=== PATIENT | female | born 1980 | race Caucasian/White ===

== ENCOUNTER 2024-12-09 21:26 | Emergency (ER) | payer OTHER ==
[~2024-12-09] VITALS: Ht 157.5 cm; Wt 83.7 kg
[2024-12-09] MEDS ORDERED: TOPIRAMATE25 MG (21:52)
[2024-12-09] MEDS ORDERED: BACLOFEN10 MG PO (21:53)
[2024-12-09] MEDS ORDERED: PREGABALIN50 MG PO (21:53)
[2024-12-09] MEDS ORDERED: ALLEGRA ALLERG180 MG PO (21:54)
[2024-12-09] MEDS ORDERED: DRIZALMA SPRINK60 MG (21:54)
[2024-12-09] MEDS ORDERED: PAIN RELIEF500 M1 (21:55)
[2024-12-09] MEDS ORDERED: TURMERIC500 M2 (21:55)
[2024-12-09] MEDS ORDERED: CLONAZEPAM0.25 MG (21:56)
[2024-12-09 22:53] LABS: BASOPHILS 0.3 % (0.1-1.2); EOSINOPHILS 1.4 % (0.7-5.8); LYMPHOCYTES 23.0 % (19.3-51.7); MCH 28.4 PG (25.6-32.2); MCHC 33.4 g/dL (32.2-35.5); MCV 84.9 fL (79.4-94.8); MONOCYTES 6.2 % (4.7-12.5); NEUTROPHILS 68.9 % (34.0-71.1); RBC 5.50 M/uL (3.93-5.22)
[2024-12-09] MEDS ORDERED: LORazepam 2 MG/ML VIAL IV ONE (23:00)
[2024-12-09] MEDS ORDERED: LACTATED RINGER'S 1,000 ML IV ONE (23:00)
[2024-12-09 23:07] LABS: ALT (SGPT) 8.0 U/L (14-59); AST (SGOT) 13.0 U/L (15-37); GLOMERULAR FILTRATION RATE,EST 64.0 mL/min (>60); PROTEIN, TOTAL 7.6 g/dL (6.4-8.2); UREA NITROGEN 11.0 mg/dL (7-18)
[2024-12-10] MEDS ORDERED: LACTATED RINGER'S 1,000 ML IV ONE (00:15)
[2024-12-10 00:55] VITALS: BP 127/84
--- NOTE | 2024-12-10 10:45 | EKG ---
[facility] [address] [facility] [place], [place] [address] Signed Sinus tachycardia with short [place] Otherwise normal ECG No previous ECGs available Confirmed by David Mcclain DO ([id number]) on 12/10/2024 10:45:24 AM Electronically Signed By: DAVID MCCLAIN DO 12/10/24 1045 PATIENT NAME: TITOWOOD Electrocardiogram DATE OF : 76 PHYSICIAN: DAVID MCCLAIN DO REPORT #: [id number] REPORT IS CONFIDENTIAL AND NOT TO BE RELEASED WITHOUT AUTHORIZATION
== END 2024-12-10 00:59 | disposition home or self-care (01) ==
LOC: ED 21:26
PROVIDERS: Internal Medicine
DX: G89.29 Other chronic pain (principal); G47.00 Insomnia, unspecified; Z88.0 Allergy status to penicillin; Z88.5 Allergy status to narcotic agent; Z79.899 Other long term (current) drug therapy
CPT/HCPCS: 80053; 85025; 93005; 93010; J2060; J7121

== ENCOUNTER 2024-12-12 11:06 | Emergency (ER) | payer OTHER ==
[~2024-12-12] VITALS: Ht 157.5 cm; Wt 81.0 kg
[~2024-12-12 11:06] MED LIST: ALLEGRA ALLERG180 MG PO; BACLOFEN10 MG PO; CLONAZEPAM0.25 MG; DRIZALMA SPRINK60 MG; PAIN RELIEF500 M1; PREGABALIN50 MG PO; TOPIRAMATE25 MG; TURMERIC500 M2
--- OUTSIDE RECORDS SUMMARY | 2024-12-12 11:13 | XMS ---
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 [place] VISIT COUNT (12 MO.) 2 [facility] TOTAL 2 NOTE: Visits indicate total known visits. ED/UCC VISIT TRACKING (12 MO.) 12/12/2024 11:06 [facility] TYPE: Emergency COMPLAINT: - SEIZURE 12/09/2024 21:27 [facility] [place] TYPE: Emergency COMPLAINT: - NUEROLOGICAL PAIN DIAGNOSES: - Allergy status to narcotic agent - Allergy status to penicillin - Insomnia, unspecified - Other chronic pain - Other fpc (current) drug therapy - Weakness INPATIENT VISIT TRACKING (12 MO.) No inpatient visits to display in this time frame [email or web address]
[2024-12-12] MEDS ORDERED: SUMATRIPTAN SUC50 MG PO (11:31)
[2024-12-12 11:44] LABS: BASOPHILS 0.4 % (0.1-1.2); EOSINOPHILS 1.2 % (0.7-5.8); LYMPHOCYTES 24.3 % (19.3-51.7); MCH 28.7 PG (25.6-32.2); MCHC 34.1 g/dL (32.2-35.5); MCV 84.2 fL (79.4-94.8); MONOCYTES 6.2 % (4.7-12.5); NEUTROPHILS 67.8 % (34.0-71.1); RBC 5.12 M/uL (3.93-5.22)
[2024-12-12 12:00] LABS: AST (SGOT) 11.0 U/L (15-37); GLOMERULAR FILTRATION RATE,EST 86.0 mL/min (>60); PROTEIN, TOTAL 6.9 g/dL (6.4-8.2); UREA NITROGEN 7.0 mg/dL (7-18)
[2024-12-12 12:01] LABS: ALT (SGPT) 2.0 U/L (14-59)
[2024-12-12] MEDS ORDERED: BACLOFEN 10 MG TAB PO ONE (17:45)
[2024-12-12 17:59] LABS: BLOOD/HGB, URINE NEGATIVE (Negative); KETONE, URINE >=80 (Negative); LEUK ESTERASE, URINE NEGATIVE (negative); NITRITE, URINE NEGATIVE (negative)
[2024-12-12 18:13] LABS: AMPHETAMINES, URINE NEGATIVE (NEGATIVE); BARBITURATES, URINE NEGATIVE (NEGATIVE); BENZODIAZEPINE, URINE NEGATIVE (NEGATIVE); CANNABINOID, URINE POSITIVE (NEGATIVE); COCAINE, URINE NEGATIVE (NEGATIVE); ECSTASY, URINE NEGATIVE (NEGATIVE); FENTANYL, URINE NEGATIVE (NEGATIVE); METHADONE, URINE NEGATIVE (NEGATIVE); OPIATES, URINE NEGATIVE (NEGATIVE); OXYCODONE, URINE NEGATIVE (NEGATIVE); PHENCYCLIDINE, URINE NEGATIVE (NEGATIVE)
[2024-12-12] MEDS ORDERED: clonazePAM 0.5 MG TAB PO PRN (18:15)
[2024-12-12] MEDS ORDERED: TOPIRAMATE 25 MG TAB PO SCH (21:00)
[2024-12-12] MEDS ORDERED: BACLOFEN 10 MG TAB PO SCH (22:00)
[2024-12-13] MEDS ORDERED: PREGABALIN 50 MG CAP PO SCH ×2 (07:00)
[2024-12-13] MEDS ORDERED: DULOXETINE HCL 60 MG CAP PO SCH ×2 (07:00)
[2024-12-13 09:10] VITALS: BP 128/77
[2024-12-13] MEDS ORDERED: clonazePAM 0.5 MG TAB PO ONE (11:30)
== END 2024-12-13 16:58 | disposition home or self-care (01) ==
LOC: ED 11:06
PROVIDERS: Emergency Medicine
DX: F32.A Depression, unspecified (principal); R45.851 Suicidal ideations; E87.6 Hypokalemia; Z88.0 Allergy status to penicillin; Z88.5 Allergy status to narcotic agent; Z79.899 Other long term (current) drug therapy
CPT/HCPCS: 36415; 80053; 80307; 81003; 85025; 99284